=== PATIENT | female | born 1960 | race Caucasian/White ===

== ENCOUNTER 2016-11-10 09:31 | Outpatient (RCR) | payer OTHER ==
[~2016-11-10 09:31] MED LIST: ALDACTONE 25MG25 M1 PO; ATIVAN 0.50.5 MG/TAB PO; CELEBREX 200MG200 MG PO; IMITREX 25MG TA25 MG; IMITREX 25MG TA25 MG PO; IMITREX50 MG PO; K-DUR 2020 MEQ PO; K-TAB20; KEPPRA 500MG500 MG PO; KLOR-CON 1010 MEQ PO; LAMICTAL 25MG T25 MG PO; LEVAQUIN 750MG750 M1 PO; MIDAMOR 5MG TAB5 MG PO; NEURONTIN300 MG/CAP PO; NORCO 325 MG-51 TAB PO; NORCO 325 MG-7.1 TAB PO; PERCOCET 325 MG1 TA2 PO; POTASSIUM75 MG PO; PRAVACHOL 40MG40 MG PO; ROBAXIN 50500 MG/TAB PO; TYLENOL 325MG325 MG PO; ULTRAM 50MG TAB50 MG PO; UNABLE; ZOVIRAX800 MG PO
== END 2016-11-11 12:47 ==
LOC: WSPT 09:31
DX: Z02.71 Encounter for disability determination (principal)

== ENCOUNTER → 2017-10-09 | Outpatient (CLI) | payer BC | LOC: COL.PUL 10-05 11:30 | DX: Z87.09 Personal history of other diseases of the respiratory system (principal) ==

== ENCOUNTER → 2018-11-08 | Outpatient (CLI) | payer BC | LOC: MC.RAD 10:45 | DX: Z12.31 Encounter for screening mammogram for malignant neoplasm of breast (principal) ==

== ENCOUNTER → 2019-11-11 | Outpatient (CLI) | payer BC | LOC: MC.RAD 08:51 | DX: Z12.31 Encounter for screening mammogram for malignant neoplasm of breast (principal) ==

== ENCOUNTER → 2021-01-02 | Outpatient (CLI) | payer BC | LOC: MC.RAD 12-31 09:15 | DX: Z12.31 Encounter for screening mammogram for malignant neoplasm of breast (principal) ==

== ENCOUNTER → 2023-03-05 | Outpatient (CLI) | payer BC | LOC: CANSCHCLI → MC.RAD 09:59 | DX: Z12.31 Encounter for screening mammogram for malignant neoplasm of breast (principal) ==